=== PATIENT | male | born 2000 | race Two or more races ===

== ENCOUNTER 2021-12-27 21:38 | Emergency (ER) | payer MEDICAID ==
[~2021-12-27] VITALS: Ht 170.2 cm; Wt 71.2 kg
[2021-12-27] MEDS ORDERED: IPRATROPIUM BROM 0.5 MG/2.5ML INH SOL NEB ONE (21:45)
[2021-12-27] MEDS ORDERED: ALBUTEROL SULF 2.5 MG/0.5ML(0.5%) NEB SOLN NEB ONE (21:45)
[2021-12-28 01:00] VITALS: BP 123/78
[2021-12-28] MEDS ORDERED: ALBU108A5 IN (01:45)
== END 2021-12-28 02:06 | disposition home or self-care (01) ==
LOC: ER 21:38
DX: J45.901 Unspecified asthma with (acute) exacerbation (principal)
CPT/HCPCS: 94640; 99283; J7644

== ENCOUNTER 2025-04-04 12:33 | Emergency (ER) | payer MEDICAID, OTHER ==
[~2025-04-04] VITALS: Ht 175.3 cm; Wt 90.0 kg
[~2025-04-04 12:33] MED LIST: ALBU108A5 IN
[2025-04-04 12:34] VITALS: BP 115/51; PULSE 118; RESP 20; O2SAT 96
[2025-04-04 12:40] VITALS: TEMP 102.6
[2025-04-04] MEDS: IBUPROFEN 600 MG TAB PO ONE ×2 (12:40→12:41)
== END 2025-04-04 17:04 | disposition left against medical advice (07) ==
LOC: ER 12:33
DX: R50.9 Fever, unspecified (principal); Z53.21 Procedure and treatment not carried out due to patient leaving prior to being seen by health care provider